=== PATIENT | male | born 1985 | race Caucasian/White ===

== ENCOUNTER 2016-11-03 13:49 | Emergency (ER) | payer OTHER ==
[2016-11-03 14:59] LABS: HEMOGLOBIN 14.9 gm/dl (14.0-17.5); RED BLOOD COUNT 5.09 M/UL (4.20-5.50); WHITE BLOOD COUNT 8.1 K/UL (4.5-11.0)
[2016-11-03 15:19] LABS: BUN/CREATININE RATIO 17 (0-10)
== END 2016-11-03 19:50 | disposition left against medical advice (07) ==
LOC: ER1 13:49
PROVIDERS: Preventive Medicine Occupational Medicine
DX: F19.10 Other psychoactive substance abuse, uncomplicated (principal); F17.200 Nicotine dependence, unspecified, uncomplicated; Z88.0 Allergy status to penicillin
CPT/HCPCS: 36415; 36600; 70450; 71010; 80053; 80307; 81001; 82150; 82803; 83690; 85025; 93005; 96361; 96374; 99285; J2060